=== PATIENT | male | born 1930 | race Caucasian/White ===

== ENCOUNTER 2017-06-18 14:23 | Inpatient (IN) | payer MEDICARE, BC ==
[~2017-06-18] VITALS: Ht 170.2 cm; Wt 69.4 kg
[2017-06-18] VITALS (7 sets, daily range): BP systolic 95–115; BP diastolic 58–81
[2017-06-18] MEDS ORDERED: ATORVASTATIN CA20 MG ORAL (15:07)
[2017-06-18] MEDS ORDERED: ARICEPT10 MG ORAL (15:07)
[2017-06-18] MEDS ORDERED: ATROVENT HFA12.9 GM IH ×2 (15:07)
[2017-06-18] MEDS ORDERED: BRILINTA90 MG PO (15:07)
[2017-06-18] MEDS ORDERED: AMIODARONE HCL100 MG ORAL (15:07)
[2017-06-18] MEDS ORDERED: AZELASTINE137 MCG/0. NS (15:07)
[2017-06-18] MEDS ORDERED: DOCUSATE SODIU100 MG ORAL (15:07)
[2017-06-18] MEDS ORDERED: GABAPENTIN100 MG ORAL (15:53)
[2017-06-18] MEDS ORDERED: TOPROL XL25 MG ORAL (15:53)
[2017-06-18] MEDS ORDERED: SUCRALFATE1 GM/10 ML PO (15:53)
[2017-06-18] MEDS ORDERED: MELATONIN1 M2 PO (15:53)
[2017-06-18] MEDS ORDERED: MIRALAX17 G2 ORAL (15:53)
[2017-06-18] MEDS ORDERED: PNEUMOVAX25 MCG/0.5 IJ (15:53)
[2017-06-18] MEDS ORDERED: NAHCO3650 MG GT (15:53)
[2017-06-18] MEDS ORDERED: DULCOLAX5 MG PO (15:53)
[2017-06-18] MEDS ORDERED: [UNRECOGNIZED DRUG - OTHER] PO (15:53)
[2017-06-18] MEDS ORDERED: LOSARTAN POTAS100 MG ORAL (15:53)
[2017-06-18] MEDS ORDERED: PROTONIX20 MG ORAL (15:53)
[2017-06-18] MEDS ORDERED: NAMENDA10 MG ORAL (15:53)
[2017-06-18 15:58] LABS: APPEARANCE,URINE SLIGHTLY CLOUDY; BILIRUBIN, URINE 1+ (NEGATIVE); COLOR,URINE BROWN; GLUCOSE, URINE (UA) NEGATIVE (NEGATIVE); KETONES,URINE 1+ (NEGATIVE); LEUKOCYTE ESTERASE ,URINE 2+ (NEGATIVE); NITRITE,URINE POSITIVE (NEGATIVE); PH,URINE 5 (4.5-8.0); PROTEIN,URINE 2+ (NEGATIVE); UROBILINOGEN,URINE 1 MG/DL (0.0-1.0)
--- NOTE | 2017-06-18 16:04 | Diagnostic Imaging Report ---
Indication: Altered mental status Technique: spiral acquisitions obtained through the brain. Angled axial and coronal 5 x 5 mm slices were reconstructed. No IV contrast utilized. Radiation dose was minimized using automated exposure control Total dose length product 1369.05 mGycm. CTDIvol(s) 70.38 mGy Comparison: none FINDINGS: No acute hemorrhage or edema. No mass effect or midline shift. There is age-related enlargement of the ventricles and extra axial CSF spaces. There is periventricular deep white matter ischemic change. Normal cr-white differentiation. There is evidence of prior bilateral ocular surgery. Visualized sinuses are unremarkable. Intact calvarium. IMPRESSION: Chronic and age-related changes. Negative for acute intracranial bleed or mass effect The CT scanner at [facility] is accredited by the [employer] and the scans are performed using protocols designed to limit radiation exposure to as low as reasonably achievable to attain images of sufficient resolution adequate for diagnostic evaluation
[2017-06-18 16:07] LABS: INR 1.3 (0.9-1.1)
--- NOTE | 2017-06-18 16:08 | Diagnostic Imaging Report ---
Indication: Shortness of breath Technique: One view of the chest Comparison: none Findings: There is bilateral interstitial and airspace edema versus infiltrates. There are bilateral pleural effusions. The heart is mildly enlarged. Severe degenerative changes of both shoulders are noted Impression: Bilateral interstitial and airspace edema, versus infiltrates, and bilateral pleural effusions
[2017-06-18 16:09] LABS: HEMATOCRIT 31.7 % (42.0-52.0); HEMOGLOBIN 10.6 G/DL (14.2-18.0); MEAN CORPUSCULAR VOLUME 92 FL (80-99); PLATELET COUNT 463 K/UL (150-450); RED BLOOD COUNT 3.45 M/UL (4.70-6.10); RED CELL DISTRIBUTION WIDTH 15.1 % (11.6-14.8); WHITE BLOOD COUNT 17.7 K/UL (4.8-10.8)
[2017-06-18 16:21] LABS: ANION GAP 20 mmol/L (5-15); BLOOD UREA NITROGEN 84 mg/dL (7-18); CALCIUM 8.7 MG/DL (8.5-10.1); CARBON DIOXIDE 17 MMOL/L (21-32); CHLORIDE 96 MMOL/L (98-107); CREATININE 3.6 MG/DL (0.55-1.30); POTASSIUM 4.9 MMOL/L (3.5-5.1); SODIUM 133 MMOL/L (136-145)
[2017-06-18 16:35] LABS: ALANINE AMINOTRANSFERASE 365 U/L (12-78); ALBUMIN/GLOBULIN RATIO 0.9 (1.0-2.7); ALKALINE PHOSPHATASE 200 U/L (46-116); ASPARTATE AMINO TRANSFERASE 670 U/L (15-37); BILIRUBIN,TOTAL 0.8 MG/DL (0.2-1.0); CKMB 16.2 NG/ML (0.0-3.6); CREATINE KINASE 327 U/L (26-308)
[2017-06-18] MEDS ORDERED: Cefepime HCl 1 GM in D5W 55 ML IVPB ONE (16:45)
--- NOTE | 2017-06-18 17:48 | Emergency Room Report ---
History of Present Illness General Chief Complaint: Dyspnea/Respdistress Source: Medical Record, EMS Present Illness HPI This patient presents from a detention facility. He had been admitted to [facility] after having an acute CO 2 weeks ago. He had a very complicated hospital course status post his myocardial infarction. She did undergo coronary artery stenting. He was supposed to undergo a second stent but because his hospital course was so complicated, the stent was delayed and was not performed.Patient has a history of mild dementia. He was otherwise a well an active 87-year-old. He suffered an acute CO 2 weeks ago and was treated at [facility]. His hospital course was complicated by congestive heart failure, atrial fibrillation, and upper GI bleed with profound anemia, and acute renal failure. He presents today from a detention facility for concern of shortness of breath. The patient is altered and unable or unwilling to give a history. There is no other history available. Allergies: Coded Allergies: PENICILLINS (Verified Allergy, Unknown, 06/18/17) Patient History Past Medical History: see triage record, HTN, CO, CAD, CHF, AFib, arrhyth, ulcer, GERD, GI bleed, dementia, renal disease Social History: Denies: smoking, alcohol use, drug use Reviewed Nursing Documentation: PMH: Agreed; PSxH: Agreed Nursing Documentation-PMH Past Medical History: No History, Except For Review of Systems All Other Systems: negative except mentioned in HPI Physical Exam Vital Signs Date Time Temp Pulse Resp B/P (MAP) Pulse Ox O2 Delivery O2 Flow Rate FiO2 06/18/17 14:23 98.1 71 20 93/60 100 Nasal Cannula 4.0 98.1 Sp02 EP Interpretation: reviewed, normal General Appearance: no apparent distress, GCS 15, non-toxic, other - Altered/ confused, frail elderly male Head: normocephalic, atraumatic, other - ecchymosis near lateral canthus of R. eye Eyes: bilateral eye normal inspection, bilateral eye PERRL ENT: hearing grossly normal, normal pharynx, no angioedema, normal voice Neck: full range of motion, supple, supple/symm/no masses Respiratory: chest non-tender, lungs clear, normal breath sounds, no respiratory distress, no retraction, no accessory muscle use, speaking full sentences Cardiovascular #1: regular rate, rhythm, no edema Gastrointestinal: normal bowel sounds, non tender, soft, non-distended, no guarding, no rebound Rectal: deferred Musculoskeletal: normal range of motion, swelling - Anasarca Neurologic: other - Non focal, grossly normal Psychiatric: mood/affect normal Skin: warm/dry, well hydrated, other - anasarca, scattered ecchymosis Medical Decision Making Diagnostic Impression: Primary Impression: Sepsis Additional Impressions: Multisystem organ failure Pneumonia Elevated troponin Renal failure Congestive heart failure (CHF) Transaminitis ER Course This patient presented altered and confused. On my evaluation, he was not short of breath or in any kind of respiratory distress. He has a complicated medical history and a recent complicated hospital course status post an acute CO. He is found to have multisystem organ failure, congestive heart failure and pneumonia on chest x-ray. He was given IV fluids and broad-spectrum antibiotics. He was placed on BiPAP as a precaution to prevent respiratory failure given the CHF and the need for fluids and antibiotics. He also is in acute renal failure with a transaminitis. His blood pressure remained stable with systolic blood pressures in the 90s. Further review the patient's chart and this is baseline for him. This patient has a poor prognosis and is critically ill. He is admitted to the ICU. This patient is critically ill. This patient required complex medical decision- making, aggressive intervention, extensive laboratory workup and monitoring. Critical care time: 40 minutes. Laboratory Tests Test 06/18/17 15:36 06/18/17 17:30 White Blood Count 17.7 K/UL (4.8-10.8) H Red Blood Count 3.45 M/UL (4.70-6.10) L Hemoglobin 10.6 G/DL (14.2-18.0) L Hematocrit 31.7 % (42.0-52.0) L Mean Corpuscular Volume 92 FL (80-99) Mean Corpuscular Hemoglobin 30.8 PG (27.0-31.0) Mean Corpuscular Hemoglobin Concent 33.5 G/DL (32.0-36.0) Red Cell Distribution Width 15.1 % (11.6-14.8) H Platelet Count 463 K/UL (150-450) H Mean Platelet Volume 7.0 FL (6.5-10.1) Neutrophils (%) (Auto) % (45.0-75.0) Lymphocytes (%) (Auto) % (20.0-45.0) Monocytes (%) (Auto) % (1.0-10.0) Eosinophils (%) (Auto) % (0.0-3.0) Basophils (%) (Auto) % (0.0-2.0) Differential Total Cells Counted 100 Neutrophils % (Manual) 89 % (45-75) H Lymphocytes % (Manual) 6 % (20-45) L Monocytes % (Manual) 5 % (1-10) Eosinophils % (Manual) 0 % (0-3) Basophils % (Manual) 0 % (0-2) Band Neutrophils 0 % (0-8) Platelet Estimate Increased H Platelet Morphology Normal Red Blood Cell Morphology Normal Prothrombin Time 14.0 SEC (9.30-11.50) H Prothrombin Time INR 1.3 (0.9-1.1) H PTT 29 SEC (23-33) Urine Color Brown Urine Appearance Slightly cloudy Urine pH 5 (4.5-8.0) Urine Specific Napoleon 1.025 (1.005-1.035) Urine Protein 2+ (NEGATIVE) H Urine Glucose (UA) Negative (NEGATIVE) Urine Ketones 1+ (NEGATIVE) H Urine Occult Blood 5+ (NEGATIVE) H Urine Nitrite Positive (NEGATIVE) H Urine Bilirubin 1+ (NEGATIVE) H Urine Ictotest Negative Urine Urobilinogen 1 MG/DL (0.0-1.0) H Urine Leukocyte Esterase 2+ (NEGATIVE) H Urine RBC 10-15 /HPF (0 - 0) H Urine WBC 5-10 /HPF (0 - 0) H Urine Squamous Epithelial Cells None /LPF (NONE/OCC) Urine Bacteria Moderate /HPF (NONE) H Urine Fine Granular Casts 2-4 /LPF (NONE) H Sodium Level 133 MMOL/L (136-145) L Potassium Level 4.9 MMOL/L (3.5-5.1) Chloride Level 96 MMOL/L (98-107) L Carbon Dioxide Level 17 MMOL/L (21-32) L Anion Gap 20 mmol/L (5-15) H Blood Urea Nitrogen 84 mg/dL (7-18) H Creatinine 3.6 MG/DL (0.55-1.30) H Estimate Glomerular Filtration Rate mL/min (>60) Glucose Level 120 MG/DL (74-106) H Lactic Acid Level 6.30 mmol/L (0.66-2.22) H 5.60 mmol/L (0.66-2.22) H Calcium Level 8.7 MG/DL (8.5-10.1) Total Bilirubin 0.8 MG/DL (0.2-1.0) Aspartate Amino Transferase (AST) 670 U/L (15-37) H Alanine Aminotransferase (ALT) 365 U/L (12-78) H Alkaline Phosphatase 200 U/L (46-116) H Total Creatine Kinase 327 U/L (26-308) H Creatine Kinase MB 16.2 NG/ML (0.0-3.6) H Creatine Kinase MB Relative Index 4.9 Troponin I 0.488 ng/mL (0.000-0.056) Pro-B-Type Natriuretic Peptide > 66778 pg/mL (0-125) H Total Protein 6.4 G/DL (6.4-8.2) Albumin 3.0 G/DL (3.4-5.0) L Globulin 3.4 g/dL Albumin/Globulin Ratio 0.9 (1.0-2.7) L EKG Diagnostic Results Rate: normal Rhythm: NSR ST Segments: no acute changes Other Impression Qwaves, RBBB. No comparison available. Rhythm Strip Diag. Results EP Interpretation: yes Rate: 80's Rhythm: NSR, no PVC's, no ectopy Chest X-Ray Diagnostic Results Chest X-Ray Diagnostic Results : Chest X-Ray Ordered: Yes # of Views/Limited/Complete: 1 View Indication: Shortness of Breath EP Interpretation: No Interpretation: other Impression: Other - Diffuse bilateral patchy opacities, RLL and RUQ opacity. Electronically Signed by: Rafael CT/MRI/US Diagnostic Results CT/MRI/US Diagnostic Results : Imaging Test Ordered: CT head Impression No acute findings. See official report. Last Vital Signs Date Time Temp Pulse Resp B/P (MAP) Pulse Ox O2 Delivery O2 Flow Rate FiO2 06/18/17 15:37 80 20 Nasal Cannula 4.0 06/18/17 15:20 98.1 99/58 89 98.1 Disposition: ADMITTED INPATIENT Condition: Critical Referrals: SKY BURCIAGA (PCP) JACE SANCHEZ D.O. Jun 18, 2017 17:48
[2017-06-18] MEDS ORDERED: Heparin 25,000u/D5W 500ml 500 ML IV SCH (20:00)
[2017-06-18] MEDS ORDERED: Vancomycin 1 GM in D5W 275 ML IVPB SCH (20:15)
[2017-06-18] MEDS: NovoLOG Insulin Flexpen SUBQ SCH (21:00)
[2017-06-18] MEDS ORDERED: Aspirin Baby 81mg ORAL SCH (21:00)
[2017-06-18] MEDS: Heparin 5000 units/ml inj SUBQ SCH (21:16)
[2017-06-18] MEDS: Albuterol/Ipratropium 3ml neb HHN SCH (22:42)
[2017-06-18] MEDS ORDERED: Vancomycin 1.5 GM/D5W 250ML IVPB SCH (23:00)
[2017-06-19] VITALS (18 sets, daily range): BP systolic 90–139; BP diastolic 55–100
[2017-06-19] MEDS: Albuterol/Ipratropium 3ml neb HHN SCH ×5 (02:55→20:20)
[2017-06-19] MEDS: NovoLOG Insulin Flexpen SUBQ SCH ×4 (05:52→21:00)
--- NOTE | 2017-06-19 08:15 | Consultation ---
DATE OF CONSULTATION: 06/18/2017 CARDIOLOGY CONSULTATION CONSULTING PHYSICIAN: Moisés Franklin M.D. REQUESTING PHYSICIAN: Ceferino Ragland M.D. REASON FOR CONSULTATION: Acute on chronic congestive heart failure. HISTORY OF PRESENT ILLNESS: This 87-year-old male, who was independent and active up until several weeks ago, was brought into the emergency room from a care home facility with acute shortness of breath. His current medical history dates back several weeks ago when he was seen at an urgent care center, sent home following laboratory draw with antibiotics and subsequently called for acute admission due to renal failure and an acute myocardial infarction. His troponin level was above 100 and he ultimately underwent a complicated coronary artery stent procedure. A second stent procedure was deferred due to the deterioration of his condition, namely, the patient had a renal failure with the creatinine of 7 that improved to around 2.6 upon his discharge to the care home facility. The patient had atrial fibrillation and congestive heart failure as well and a GI bleed due to a gastric ulcer. The patient was at the care home facility for just one day and was transferred because of acute decompensation with shortness of breath. PAST MEDICAL HISTORY: Coronary artery disease, recent myocardial infarction, congestive heart failure, atrial fibrillation, hypertension, gastric ulcer, gastroesophageal reflux, acute on chronic kidney disease, and cerebrovascular disease with dementia. ALLERGIES: Include penicillin. MEDICATIONS: Prior to admission, reviewed and reconciled. SOCIAL HISTORY: Negative for smoking, alcohol, or substance abuse. FAMILY HISTORY: Not contributory. REVIEW OF SYSTEMS: The patient's nephew is interviewed as well as the patient himself. All systems negative other than detailed data noted above. PHYSICAL EXAMINATION: VITAL SIGNS: Afebrile. Blood pressure 93/60, pulse 71, and respirations 20. HEENT: Normocephalic and atraumatic. Conjunctivae pink. Sclerae are anicteric. Oropharynx clear. Mucous membranes moist. NECK: Supple. Jugular venous pressure grossly elevated. No accessory muscle use is noted. LUNGS: With bilateral rales and subcostal retractions. CARDIAC: Irregularly irregular rhythm. Normal S1, S2. A 1/6 systolic murmur at apex. ABDOMEN: Soft and nontender. EXTREMITIES: With trace edema. NEUROLOGIC: Nonfocal. SKIN: Warm and dry. LABORATORY AND DIAGNOSTIC DATA: Chest x-ray with pulmonary edema, interstitial disease. EKG, sinus rhythm, right bundle-branch block, anterolateral infarction, nonspecific ST-T change. Urinalysis with 2+ leukocyte esterase, 5 to 10 white cells. white count is 17.7, hemoglobin is 10.6. Lactic acid 6.3. Sodium 133, potassium 4.9, bicarb 17, BUN 84, and creatinine 3.6. IMPRESSION: 1. Critical condition and guarded prognosis. 2. Cardiogenic shock. 3. Acute myocardial ischemia and possible infarction. 4. Acute on chronic systolic and diastolic congestive heart failure. 5. Possible healthcare-acquired pneumonia. 6. Lactic acidosis. 7. Ischemic cardiomyopathy. 8. Recent coronary stenting. 9. Acute on chronic renal failure. 10. History of recent gastrointestinal bleed. PLAN: 1. BiPAP support. 2. ICU care with cardiac monitoring. 3. Broad-spectrum antibiotics. 4. Diuresis efforts. 5. Continue dual anti-platelet therapy. 6. Titrate antianginal regimen as tolerated by blood pressure. 7. DVT prophylaxis. 8. Stress ulcer prophylaxis. Moisés Franklin M.D. DR: CONI JOB#: [id number] CC:
[2017-06-19] MEDS: Heparin 5000 units/ml inj SUBQ SCH ×2 (08:42→21:06)
[2017-06-19 08:59] LABS: HEMATOCRIT 30.4 % (42.0-52.0); HEMOGLOBIN 10.6 G/DL (14.2-18.0); MEAN CORPUSCULAR VOLUME 91 FL (80-99); PLATELET COUNT 363 K/UL (150-450); RED BLOOD COUNT 3.35 M/UL (4.70-6.10); RED CELL DISTRIBUTION WIDTH 15.2 % (11.6-14.8)
[2017-06-19] MEDS ORDERED: Amiodarone 200mg tab ORAL SCH (09:00)
[2017-06-19] MEDS ORDERED: Aspirin Baby 81mg ORAL SCH (09:00)
[2017-06-19] MEDS ORDERED: Metoprolol Succinate XL 25mg tab ORAL SCH (09:00)
[2017-06-19 09:31] LABS: ALANINE AMINOTRANSFERASE 348 U/L (12-78); ALBUMIN 2.7 G/DL (3.4-5.0); ALBUMIN/GLOBULIN RATIO 0.8 (1.0-2.7); ALKALINE PHOSPHATASE 191 U/L (46-116); ANION GAP 17 mmol/L (5-15); ASPARTATE AMINO TRANSFERASE 491 U/L (15-37); BILIRUBIN,TOTAL 0.8 MG/DL (0.2-1.0); BLOOD UREA NITROGEN 97 mg/dL (7-18); CALCIUM 8.4 MG/DL (8.5-10.1); CARBON DIOXIDE 18 MMOL/L (21-32); CHLORIDE 98 MMOL/L (98-107); SODIUM 133 MMOL/L (136-145)
--- NOTE | 2017-06-19 14:13 | History & Physical ---
History and Physical History & Physicial dict resp failure pul edema pos pneumonia CKD/JOSEFINA called renal and coardiology disc w nephew he will disc code status w other family prognosis guarded Ceferino Ragland MD Jun 19, 2017 14:13
--- NOTE | 2017-06-19 17:27 | Diagnostic Imaging Report ---
Indication: Acute renal failure Technique: Grayscale and duplex images of the kidneys, retroperitoneum, and bladder were obtained. Comparison: none Findings: Right kidney measures 8.5 cm in length. Left kidney measures 9.6 cm in length. Both kidneys demonstrate normal echogenicity. No hydronephrosis. There is a left upper pole renal cyst.. Normal inferior vena cava. The bladder contains a Ovalle catheter. Some debris is seen within the bladder lumen. Impression: Negative for hydronephrosis Ovalle catheter within the bladder, which is empty. Debris within the bladder lumen, nonspecific Incidental finding left renal cyst.
[2017-06-19] MEDS ORDERED: Cefepime HCl 0.5 GM in D5W 55 ML IVPB SCH ×4 (18:00)
[2017-06-19] MEDS ORDERED: Albuterol/Ipratropium 3ml neb HHN SCH (19:00)
--- NOTE | 2017-06-19 19:30 | History and Physical Report ---
DATE OF ADMISSION: 06/18/2017 HISTORY OF PRESENT ILLNESS: The patient is an elderly man admitted from the nursing facility where he was cared for by another physician, who is not on staff. He had a prolonged hospital course recently and was recently discharged from [facility] after an acute myocardial infarction with troponin over 100 and acute renal failure. He had a coronary stent placed. He had gastrointestinal bleeding, atrial fibrillation, and acute renal failure. He recovered sufficiently for discharge to detention where he spent only short time and was transferred here because of respiratory distress. When he arrived, he was in distress due to congestive heart failure, acute respiratory failure, and possible pneumonia and admission was arranged. He did not have any high fever. He can provide no additional history. I have spoken to the family and reviewed the records from [facility]. Code status, discussed with family currently Full Code. PAST MEDICAL HISTORY: Coronary heart disease, acute on chronic kidney disease, gastrointestinal bleeding, atrial fibrillation, congestive heart failure, hypertension, recent DE, gastric ulcer, dementia. ALLERGIES: Penicillin. SOCIAL HISTORY: He does not drink or smoke. He is currently living in a nursing facility. REVIEW OF SYSTEMS: Cannot be obtained. PHYSICAL EXAMINATION: GENERAL: The patient is awake and nods his head. He is on BiPAP mask and cannot communicate very well. VITAL SIGNS: Showed the blood pressure is somewhat low at 90 to 115 systolic. There is no fever. He appears cachectic and chronically ill. The heart rate is about 80 and rhythm appears to be atrial fibrillation. Respirations are elevated. SKIN: Warm and dry. HEENT: The head is normocephalic. NECK: No jugular vein distention. CHEST: Has a few rhonchi. CARDIAC: Rhythm is irregular. ABDOMEN: Soft and nontender. EXTREMITIES: No clubbing, cyanosis, or edema. LABORATORY AND DIAGNOSTIC DATA: Chest x-ray shows pulmonary edema and possible pneumonia. The white count is elevated at 17,000. Urinalysis has a few white cells. Creatinine is elevated at 4.0, bicarbonate is low at 18. Blood gas showed pH of 7.5, pCO2 of 16 with bicarbonate of 12, pO2 is 536. Natriuretic peptide is elevated over 35,000 and troponin is elevated at 0.4. PSA is mildly elevated at 5.7. IMPRESSION: 1. Acute respiratory failure. 2. Pulmonary with possible extension. 3. Chronic kidney disease with possible acute component. 4. Shock liver with elevated liver enzymes. 5. Coronary heart disease. 6. Dementia. 7. History of recent gastrointestinal bleed. PLAN: The patient will be treated with BiPAP as needed as well as diuresis and antibiotics. His prognosis is guarded. I discussed his care with the nephew today. Ceferino Ragland M.D. DR: Marylu JOB#: [id number] CC: Kristopher Bowers M.D. ; FAX#: [phone] CRISS SMITH M.D.; FAX#: [phone]
--- NOTE | 2017-06-19 20:00 | Consultation ---
DATE OF CONSULTATION: 06/19/2017 NEPHROLOGY CONSULTATION CONSULTING PHYSICIAN: Henry Arciniega M.D. REFERRING PHYSICIAN: Ceferino Ragland M.D. REASON FOR CONSULTATION: Acute on chronic kidney injury. HISTORY OF PRESENT ILLNESS: The patient is an 87-year-old man who was recently in [facility] with ST-elevation myocardial infarction and cardiac cath and stenting, congestive heart failure. He had low ejection fraction of 30% to 35% with hypokinesis of the basal and mid anterior septal wall. The patient also had paroxysmal AFib with RVR and upper GI bleed, hemoptysis, leukocytosis, and JOSEFINA on CKD at [facility]. His creatinine was in the low to mid 2s and today, it is 4. He came in to [facility] last night with acute shortness of breath and respiratory failure. He was on BiPAP, now weaned off the BiPAP. He is in the ICU. There is history of hypertension and Alzheimer disease. The patient cannot contribute anything to his history. PAST HISTORY: The patient is unable to provide. MEDICATIONS: On discharge from [facility] include losartan 50 mg daily, Namenda 10 mg b.i.d., Metoprolol-XL 25 mg half a tablet daily, Protonix 40 mg b.i.d., sodium bicarbonate 650 mg two tablets b.i.d., sucralfate 1 g q.i.d., ticagrelor 90 mg daily, Anucort-HC suppository p.r.n., melatonin 1 mg daily p.r.n., trazodone 25 mg at bedtime p.r.n. ALLERGIES: Apparently to penicillin. REVIEW OF SYSTEMS: The patient is unable to provide. PHYSICAL EXAMINATION: GENERAL: The patient is seen in the ICU. He is alert, chronically ill-appearing, thin, elderly man. VITAL SIGNS: Blood pressure 102/61, pulse 80, respirations 18, O2 saturation 96% on 2 liters, and temperature 98 degrees axillary. HEAD, EARS, EYES, NOSE, THROAT: Sclerae are nonicteric. Ocular motions intact in all directions. There is facial ecchymosis. Oral mucosa moist. NECK: No adenopathy or thyroid enlargement. LUNGS: Fine crackles at the bases bilateral. HEART: Rhythm is regular. S1 and S2. Apical S4. I hear no murmurs. ABDOMEN: Soft. I am unable to feel liver or spleen. EXTREMITIES: No edema. NEUROLOGIC: The patient is alert and responsive. Ocular motions intact in all directions. Smile symmetric. Tongue is midline. He moves all extremities. He is disoriented. PERTINENT LABORATORY AND DIAGNOSTIC DATA: On 06/18/2017, BUN 84 and creatinine 3.6. Troponin 0.488. Today, BUN 97, creatinine 4, sodium 133, potassium 4, chloride 98, and CO2 18. His lactic acid 2.7 and 4.4. BNP greater than 35,000. Albumin is 2.7. TSH 1.628. He had elevated AST, ALT, and alkaline phosphatase. His total CK is 327. Chest x-ray is consistent with CHF. IMPRESSION: 1. Chronic kidney disease, likely stage 4 or 5, due to nephrosclerosis. 2. Acute kidney injury likely secondary to contrast nephropathy from recent cardiac catheterization, possible contribution of cardiorenal syndrome with worsening CHF and cardiomyopathy, possible atheroembolic syndrome as well. 3. CHF, acute on chronic with systolic dysfunction. 4. Alzheimer's. 5. Moderate protein-calorie malnutrition. 6. Elevated liver enzymes likely secondary to CHF. PLAN: I would continue gradual diuresis at this time in view of his respiratory failure and CHF. We will watch closely and I expect his BUN and creatinine may rise a bit and then peak. Hopefully, his acute kidney injury will resolve with observation. He may or may not be a candidate for dialysis, but this will have to be considered closely in view of his multiple comorbidities and Alzheimer disease. Thank you so much for allowing me to participate in the care of this patient. Henry Arciniega M.D. DR: ELANA JOB#: [id number] CC:
[2017-06-19] MEDS ORDERED: NovoLOG Insulin Flexpen SUBQ SCH (21:00)
[2017-06-19] MEDS ORDERED: Heparin 5000 units/ml inj SUBQ SCH (21:00)
[2017-06-19] MEDS: Cefepime HCl 0.5 GM in D5W 55 ML IVPB SCH (21:05)
[2017-06-19] MEDS ORDERED: dilTIAZem HCl 25mg/5ml Inj IVP ONE (22:15)
[2017-06-20] VITALS (8 sets, daily range): BP systolic 94–136; BP diastolic 59–89
[2017-06-20] MEDS ORDERED: Vancomycin 1gm in D5W 275ml IVPB ONE ×2
[2017-06-20] MEDS: Albuterol/Ipratropium 3ml neb HHN SCH ×6 (00:28→19:00)
[2017-06-20 01:08] LABS: CREATININE 4.1 MG/DL (0.55-1.30)
--- NOTE | 2017-06-20 02:45 | Progress Note ---
DATE: 06/19/2017 CARDIOLOGY PROGRESS NOTE CRITICAL CARE SUBJECTIVE: The patient feels slightly better today with less shortness of breath. He is more alert and interactive. He is off BiPAP. Saturating on a nasal cannula adequately. Monitored rhythm is atrial fibrillation with episodes of rapid ventricular response. OBJECTIVE: VITAL SIGNS: Blood pressure 110/70, heart rate 59 to 119, and respiratory rate 18 to 20. He is afebrile. Oxygen saturation is 91% to 99% on 2 liters nasal cannula. LUNGS: Few rales. HEART: Irregularly irregular rhythm. Normal S1, S2. ABDOMEN: Soft. EXTREMITIES: No edema. LABORATORY DATA: White count 13 and hemoglobin 10.6. BUN 97 and creatinine 4. Lactic acid 4.4. Troponin 0.421. Urinalysis with 5 to 10 white cells. IMPRESSION: 1. Remains critical and guarded. 2. Cardiogenic shock. 3. Acute myocardial ischemia and possible infarction. 4. Acute on chronic systolic and diastolic congestive heart failure. 5. Healthcare-acquired pneumonia. 6. Lactic acidosis. 7. Ischemic cardiomyopathy with recent coronary stenting. 8. Acute on chronic renal failure. 9. Recent history of gastrointestinal bleeding. 10. Paroxysmal atrial fibrillation with episodes of rapid ventricular response. PLAN: 1. Amiodarone reloading. 2. Titrate beta-laila. 3. IV Cardizem for episodes of rapid ventricular response. 4. Titrate diuretic dosing. 5. Optimize cardiorenal parameters. 6. No plans for anticoagulation at this time due to increased bleeding risk in view of recent gastrointestinal bleed. Moisés Franklin M.D. DR: KEYLA JOB#: [id number] CC:
[2017-06-20] MEDS: NovoLOG Insulin Flexpen SUBQ SCH ×3 (06:30→16:27)
[2017-06-20 07:32] LABS: ALANINE AMINOTRANSFERASE 554 U/L (12-78); ALBUMIN 2.7 G/DL (3.4-5.0); ALBUMIN/GLOBULIN RATIO 0.8 (1.0-2.7); ALKALINE PHOSPHATASE 213 U/L (46-116); ANION GAP 20 mmol/L (5-15); ASPARTATE AMINO TRANSFERASE 677 U/L (15-37); BLOOD UREA NITROGEN 106 mg/dL (7-18); CALCIUM 8.3 MG/DL (8.5-10.1); CARBON DIOXIDE 15 MMOL/L (21-32); CHLORIDE 96 MMOL/L (98-107); CREATININE 4.4 MG/DL (0.55-1.30); PHOSPHORUS 7.6 MG/DL (2.5-4.9); SODIUM 131 MMOL/L (136-145)
[2017-06-20 07:43] LABS: HEMATOCRIT 29.1 % (42.0-52.0); HEMOGLOBIN 10.1 G/DL (14.2-18.0); MEAN CORPUSCULAR VOLUME 91 FL (80-99); PLATELET COUNT 364 K/UL (150-450); RED BLOOD COUNT 3.18 M/UL (4.70-6.10); RED CELL DISTRIBUTION WIDTH 14.6 % (11.6-14.8); WHITE BLOOD COUNT 15.3 K/UL (4.8-10.8)
[2017-06-20] MEDS ORDERED: Metoprolol Succinate XL 25mg tab ORAL SCH ×2 (09:00)
[2017-06-20] MEDS ORDERED: Amiodarone 200mg tab ORAL SCH ×2 (09:00)
[2017-06-20] MEDS ORDERED: Aspirin Baby 81mg ORAL SCH ×2 (09:00)
[2017-06-20] MEDS: Heparin 5000 units/ml inj SUBQ SCH (09:19)
[2017-06-20] MEDS ORDERED: Allopurinol 100mg Tab ORAL SCH (15:00)
--- NOTE | 2017-06-20 15:09 | Nephrology Progress Note ---
Assessment/Plan Problem List: (1) Hyperuricemia (2) JOSEFINA (acute kidney injury) (3) CKD (chronic kidney disease) stage 5, GFR less than 15 ml/min (4) Congestive heart failure (CHF) (5) Transaminitis (6) Multisystem organ failure (7) Pneumonia Plan continue lasix, add allopurinol, repeat cxr d/w family Subjective ROS Limited/Unobtainable: Yes Objective Objective Last 24 Hour Vital Signs Date Time Temp Pulse Resp B/P (MAP) Pulse Ox O2 Delivery O2 Flow Rate FiO2 06/20/17 12:00 96.8 93 22 101/65 91 Nasal Cannula 4.0 96.8 06/20/17 12:00 4.0 06/20/17 11:50 96 06/20/17 10:58 72 18 92 Nasal Cannula 3.0 32 06/20/17 10:48 80 18 91 Nasal Cannula 3.0 32 06/20/17 09:22 90 98/62 06/20/17 09:00 90 98/62 06/20/17 08:00 97.7 113 22 94/59 90 Nasal Cannula 2.0 97.7 06/20/17 08:00 2.0 06/20/17 08:00 123 06/20/17 06:56 64 18 94 Nasal Cannula 3.0 32 06/20/17 06:56 Nasal Cannula 3.0 32 06/20/17 06:56 91 Nasal Cannula 3.0 32 06/20/17 06:45 79 18 90 Nasal Cannula 2.0 28 06/20/17 04:00 96 06/20/17 04:00 97.2 94 25 100/69 96 Nasal Cannula 2.0 97.2 06/20/17 03:15 64 18 93 Nasal Cannula 3.0 32 06/20/17 03:02 68 18 88 Nasal Cannula 3.0 32 06/20/17 01:11 68 22 98 Facial 30 06/20/17 00:30 100 06/20/17 00:00 105 06/20/17 00:00 97.8 103 20 136/89 100 Bi-pap 100.0 97.8 06/19/17 23:45 66 18 96 Nasal Cannula 2.0 28 06/19/17 23:35 65 18 91 Nasal Cannula 2.0 28 06/19/17 22:30 119 110/70 06/19/17 20:36 85 18 99 Nasal Cannula 2.0 28 06/19/17 20:20 59 18 95 Nasal Cannula 2.0 28 06/19/17 20:20 Nasal Cannula 2.0 06/19/17 20:00 94 06/19/17 20:00 97.1 90 20 139/100 100 Nasal Cannula 2.0 97.1 06/19/17 16:00 98.0 76 18 103/62 98 Nasal Cannula 2.0 98.0 06/19/17 16:00 76 06/19/17 15:23 75 18 98 Nasal Cannula 2.0 28 06/19/17 15:12 74 18 95 Nasal Cannula 2.0 28 Intake and Output 06/19/17 06/20/17 19:00 07:00 Intake Total 400 ml 360 ml Output Total 340 ml 350 ml Balance 60 ml 10 ml Intake Oral 300 ml 150 ml IV Total 100 ml 210 ml Output Urine Total 340 ml 350 ml Laboratory Tests 06/19/17 21:00: Urine Collection Time 24, Urine Total Volume 750, Urine Creatinine 104, Urine Creatinine 24 Hour 780L, Patient Height Inches (Creat Clear) 67, Patient Weight Pounds (Creat Clear) 165.99, Creatinine Clearance 12L, Creatinine 4.1H, Estimat Glomerular Filtration Rate , Random Vancomycin Level 14.1 06/20/17 06:30: Creatinine 4.4H, Estimat Glomerular Filtration Rate , White Blood Count 15.3H, Red Blood Count 3.18L, Hemoglobin 10.1L, Hematocrit 29.1L, Mean Corpuscular Volume 91, Mean Corpuscular Hemoglobin 31.7H, Mean Corpuscular Hemoglobin Concent 34.7, Red Cell Distribution Width 14.6, Platelet Count 364, Mean Platelet Volume 7.4, Neutrophils (%) (Auto) , Lymphocytes (%) (Auto) , Monocytes (%) (Auto) , Eosinophils (%) (Auto) , Basophils (%) (Auto) , Differential Total Cells Counted 100, Neutrophils % (Manual) 91H, Lymphocytes % (Manual) 4L, Monocytes % (Manual) 5, Eosinophils % (Manual) 0, Basophils % ( Manual) 0, Band Neutrophils 0, Platelet Estimate Adequate, Platelet Morphology Normal, Hypochromasia 1+, Sodium Level 131L, Potassium Level 4.0, Chloride Level 96L, Carbon Dioxide Level 15L, Anion Gap 20H, Blood Urea Nitrogen 106H, Glucose Level 126H, Uric Acid 15.6H, Calcium Level 8.3L, Phosphorus Level 7.6H, Magnesium Level 2.5H, Total Bilirubin 1.0, Aspartate Amino Transf (AST/SGOT) 677H, Alanine Aminotransferase (ALT/SGPT) 554H, Alkaline Phosphatase 213H, Troponin I 0.400H, Total Protein 6.0L, Albumin 2.7L, Globulin 3.3, Albumin/ Globulin Ratio 0.8L Height (Feet): 5 Height (Inches): 7.00 Weight (Pounds): 153 General Appearance: moderate distress EENT: other - facial eccymoses Neck: normal alignment Cardiovascular: regular rhythm, tachycardia Respiratory/Chest: accessory muscle use, rhonchi - bilaterally Abdomen: non tender, soft, no organomegaly Extremities: moderate edema Neurologic: water leak repairer II-XII grossly normal CRISS SMITH Jun 20, 2017 15:09
--- NOTE | 2017-06-20 16:49 | Pulmonology Progress Note ---
Assessment/Plan Assessment/Plan 1. Acute respiratory failure. 2. afib 3. Chronic kidney disease with possible acute component. 4. Shock liver with elevated liver enzymes. 5. Coronary heart disease. 6. Dementia. 7. History of recent gastrointestinal bleed. 8. pna better today bipap qhs and prn distress rate control nebs as ordered monitor for arrhythmia titrate o2 wound care encourage po awaiting transfer to [facility] Subjective Constitutional: Reports: no symptoms HEENT: Repors: no symptoms Respiratory: Reports: no symptoms, dry cough Gastrointestinal/Abdominal: Reports: no symptoms Genitourinary: Reports: no symptoms Skin: Reports: no symptoms Endocrine: Reports: no symptoms Allergies: Coded Allergies: PENICILLINS (Verified Allergy, Unknown, 06/18/17) Subjective doing well today no fever tolerating po no bleeding on 2 4 L sats 93 no cp nv cough with minimal phlegm Objective Last 24 Hour Vital Signs Date Time Temp Pulse Resp B/P (MAP) Pulse Ox O2 Delivery O2 Flow Rate FiO2 06/20/17 16:00 4.0 06/20/17 15:29 95 06/20/17 15:07 79 18 92 Nasal Cannula 4.0 36 06/20/17 14:59 75 18 92 Nasal Cannula 4.0 36 06/20/17 12:00 96.8 93 22 101/65 91 Nasal Cannula 4.0 96.8 06/20/17 12:00 4.0 06/20/17 11:50 96 06/20/17 10:58 72 18 92 Nasal Cannula 3.0 32 06/20/17 10:48 80 18 91 Nasal Cannula 3.0 32 06/20/17 09:22 90 98/62 06/20/17 09:00 90 98/62 06/20/17 08:00 97.7 113 22 94/59 90 Nasal Cannula 2.0 97.7 06/20/17 08:00 2.0 06/20/17 08:00 123 06/20/17 06:56 64 18 94 Nasal Cannula 3.0 32 06/20/17 06:56 Nasal Cannula 3.0 32 06/20/17 06:56 91 Nasal Cannula 3.0 32 06/20/17 06:45 79 18 90 Nasal Cannula 2.0 28 06/20/17 04:00 96 06/20/17 04:00 97.2 94 25 100/69 96 Nasal Cannula 2.0 97.2 06/20/17 03:15 64 18 93 Nasal Cannula 3.0 32 06/20/17 03:02 68 18 88 Nasal Cannula 3.0 32 06/20/17 01:11 68 22 98 Facial 30 06/20/17 00:30 100 06/20/17 00:00 105 06/20/17 00:00 97.8 103 20 136/89 100 Bi-pap 100.0 97.8 06/19/17 23:45 66 18 96 Nasal Cannula 2.0 28 06/19/17 23:35 65 18 91 Nasal Cannula 2.0 28 06/19/17 22:30 119 110/70 06/19/17 20:36 85 18 99 Nasal Cannula 2.0 28 06/19/17 20:20 59 18 95 Nasal Cannula 2.0 28 06/19/17 20:20 Nasal Cannula 2.0 06/19/17 20:00 94 06/19/17 20:00 97.1 90 20 139/100 100 Nasal Cannula 2.0 97.1 Intake and Output 06/19/17 06/20/17 19:00 07:00 Intake Total 400 ml 360 ml Output Total 340 ml 350 ml Balance 60 ml 10 ml Intake Oral 300 ml 150 ml IV Total 100 ml 210 ml Output Urine Total 340 ml 350 ml HEENT: normocephalic, atraumatic Respiratory/Chest: crackles/rales, rhonchi Cardiovascular: regular rhythm, murmur systolic Abdomen: soft, non tender, no organomegaly Skin: no rash, no lesions Neurologic/Psychiatric: no motor/sensory deficits, alert, oriented x 3 Lymphatic: no neck adenopathy, no groin adenopathy Microbiology Date/Time Source Procedure Growth Status 06/18/17 15:22 Blood Blood Culture - Preliminary NO GROWTH AFTER 24 HOURS Resulted 06/18/17 15:10 Blood Blood Culture - Preliminary NO GROWTH AFTER 24 HOURS Resulted 06/18/17 19:00 Nasal Nares MRSA Culture - Final NO METHICILLIN RESISTANT STAPH AUREUS... Complete 06/18/17 15:36 Urine,Clean Catch Urine Culture - Final NO GROWTH AFTER 48 HOURS Complete 06/18/17 19:00 Rectum VRE Culture - Final NO VANCOMYCIN RESISTANT ENTEROCOCCUS ... Complete Laboratory Tests 06/19/17 21:00: Urine Collection Time 24, Urine Total Volume 750, Urine Creatinine 104, Urine Creatinine 24 Hour 780L, Patient Height Inches (Creat Clear) 67, Patient Weight Pounds (Creat Clear) 165.99, Creatinine Clearance 12L, Creatinine 4.1H, Estimat Glomerular Filtration Rate , Random Vancomycin Level 14.1 06/20/17 06:30: Creatinine 4.4H, Estimat Glomerular Filtration Rate , White Blood Count 15.3H, Red Blood Count 3.18L, Hemoglobin 10.1L, Hematocrit 29.1L, Mean Corpuscular Volume 91, Mean Corpuscular Hemoglobin 31.7H, Mean Corpuscular Hemoglobin Concent 34.7, Red Cell Distribution Width 14.6, Platelet Count 364, Mean Platelet Volume 7.4, Neutrophils (%) (Auto) , Lymphocytes (%) (Auto) , Monocytes (%) (Auto) , Eosinophils (%) (Auto) , Basophils (%) (Auto) , Differential Total Cells Counted 100, Neutrophils % (Manual) 91H, Lymphocytes % (Manual) 4L, Monocytes % (Manual) 5, Eosinophils % (Manual) 0, Basophils % ( Manual) 0, Band Neutrophils 0, Platelet Estimate Adequate, Platelet Morphology Normal, Hypochromasia 1+, Sodium Level 131L, Potassium Level 4.0, Chloride Level 96L, Carbon Dioxide Level 15L, Anion Gap 20H, Blood Urea Nitrogen 106H, Glucose Level 126H, Uric Acid 15.6H, Calcium Level 8.3L, Phosphorus Level 7.6H, Magnesium Level 2.5H, Total Bilirubin 1.0, Aspartate Amino Transf (AST/SGOT) 677H, Alanine Aminotransferase (ALT/SGPT) 554H, Alkaline Phosphatase 213H, Troponin I 0.400H, Total Protein 6.0L, Albumin 2.7L, Globulin 3.3, Albumin/ Globulin Ratio 0.8L Current Medications Medications (Trade) Dose Ordered Sig/Leandro Route PRN Reason Start Time Stop Time Status Last Admin Dose Admin Albuterol/ Ipratropium (Albuterol/ Ipratropium) 3 ml Q4HRT HHN 06/19/17 19:00 06/23/17 22:59 06/20/17 14:52 Allopurinol (Zyloprim) 200 mg DAILY ORAL 06/20/17 15:00 07/20/17 14:59 06/20/17 16:26 Amiodarone HCl (Cordarone) 200 mg DAILY ORAL 06/20/17 09:00 07/19/17 08:59 06/20/17 09:16 Aspirin (ASA) 81 mg DAILY ORAL 06/20/17 09:00 07/19/17 08:59 06/20/17 09:17 Cefepime HCl 0.5 gm/Dextrose 55 ml @ 110 mls/hr Q24H IVPB 06/19/17 18:00 06/26/17 17:59 06/19/17 21:05 Clopidogrel Bisulfate (Plavix) 75 mg DAILY ORAL 06/20/17 09:00 07/19/17 08:59 06/20/17 09:15 Dextrose (Dextrose 50%) 25 ml STAT PRN IV Hypoglycemia BS 60-69mg/dl 06/19/17 19:16 07/18/17 19:15 Dextrose (Dextrose 50%) 50 ml STAT PRN IV Hypoglycemia BS less than 60mg 06/19/17 19:16 07/18/17 19:15 Furosemide (Lasix) 40 mg Q8HR IV 06/20/17 22:00 07/20/17 21:59 Heparin Sodium (Porcine) (Heparin 5000 units/ml) 5,000 units EVERY 12 HOURS SUBQ 06/19/17 21:00 07/18/17 20:59 06/20/17 09:19 Insulin Aspart (NovoLOG) BEFORE MEALS AND HS SUBQ 06/19/17 21:00 07/18/17 20:59 06/20/17 16:27 Metoprolol Succinate (Toprol XL) 25 mg DAILY ORAL 06/20/17 09:00 07/19/17 08:59 Metronidazole 100 ml @ 100 mls/hr Q8HR IVPB 06/19/17 22:00 06/25/17 21:59 06/20/17 14:24 Pantoprazole (Protonix) 40 mg DAILY ORAL 06/20/17 09:00 07/19/17 08:59 06/20/17 09:17 Vancomycin HCl (Vanco rx to dose) 1 ea DAILY PRN MISC Per rx protocol 06/19/17 19:17 07/19/17 19:16 NIYA IRWIN DO Jun 20, 2017 16:49
[2017-06-20] MEDS ORDERED: Zolpidem 5mg tab ORAL PRN (17:15)
[2017-06-20] MEDS: Cefepime HCl 0.5 GM in D5W 55 ML IVPB SCH (17:20)
[2017-06-20] MEDS ORDERED: Tubing IV Secondary IV ONE ×2 (19:53→21:53)
[2017-06-20] MEDS ORDERED: D5W 275ml ONE (19:53)
[2017-06-20] MEDS ORDERED: NS 275ml ONE (19:53)
[2017-06-20] MEDS ORDERED: Levalbuterol Inh UD 1.25mg/0.5ml HHN SCH (21:00)
[2017-06-20] MEDS ORDERED: Metoprolol 25mg tab ORAL SCH (21:45)
[2017-06-20] MEDS ORDERED: Metoprolol 5mg/5ml Inj IVP SCH (21:45)
[2017-06-20] MEDS ORDERED: Metoprolol 5mg/5ml Inj IVPB SCH (21:45)
[2017-06-20] MEDS ORDERED: LORazepam Inj 2mg/ml 1ml IV SCH (21:45)
--- NOTE | 2017-06-21 02:15 | Progress Note ---
DATE: 06/20/2017 CARDIOLOGY PROGRESS NOTE SUBJECTIVE: The patient has less shortness of breath. He is comfortable on two liters nasal cannula. The patient's sister is at bedside. Case discussed in detail with her and the patient. OBJECTIVE: VITAL SIGNS: Blood pressure 101/65, pulse 93, respirations 22, and afebrile. LUNGS: Coarse breath sounds. Few rhonchi and rales. HEART: Irregularly irregular rhythm. Normal S1 and S2. ABDOMEN: Soft. EXTREMITIES: No edema. LABORATORY DATA: White count 15, hemoglobin 10. Sodium 131, potassium 4, bicarbonate 15, BUN 106, and creatinine 4.4. Troponin down to 0.4. Uric acid is 15.6. Albumin 2.7. IMPRESSION: 1. Acute myocardial infarction. 2. Cardiogenic shock. 3. Pulmonary edema. 4. Acute on chronic renal failure. 5. Hyperuricemia. 6. Transaminitis, likely due to passive congestion. 7. Healthcare-acquired pneumonia, remains here with serious condition and guarded prognosis, but improved. 8. Paroxysmal atrial fibrillation. 9. Status post gastrointestinal bleed due to gastric ulcer. 10. Status post coronary stenting. PLAN: Diuresis with cautious monitoring of cardiorenal parameters. Family members made aware that dialysis risk is present. Continue dual anti-platelet therapy. Hold anticoagulation in view of recent gastric ulcer and bleeding risk. Increase amiodarone to reload and maintain sinus rhythm. He will be transferred to the primary care physician at [facility] with critical care ambulance only. Discussed with family members. Continue antimicrobials. Moisés Franklin M.D. DR: Krystian JOB#: [id number] CC:
[2017-06-21] MEDS ORDERED: Amiodarone 200mg tab ORAL SCH (09:00)
--- NOTE | 2017-06-21 17:50 | Cardiology Report ---
APPROVED REPORT EKG Measurement Heart [id number] MD [id number] Normal sinus rhythm Left axis deviation Right bundle branch block Anteroseptal infarct, age undetermined Abnormal ECG
--- NOTE | 2017-06-22 09:45 | Discharge Summary ---
Discharge Summary Discharge Summary Discharge Summary DATE OF ADMISSION: 06/18/2017 DATE OF DISCHARGE: 06/20/2017 REASON FOR ADMISSION: [] 87 years old male recently sustained acute myocardial infarction and was treated at [facility] with placement of coronary stent.'s hospital course was complicated by congestive heart failure, atrial fibrillation , and upper GI bleeding with profound anemia, as well as acute renal failure. Patient was supposed to undergo a second stent but because of the complicated hospital course this Lasix middle stent was delayed and not performed. Patient after stability patient was transferred to [facility] facility for further management. Patient presented to emergency department with shortness of breath. Patient was either and was unable to provide any significant information. Upon evaluation in emergency department CT of the head revealed no acute intracranial pathology but shows chronic age-related changes. X-ray revealed bilateral interstitial and airspace edema versus infiltrate, and bilateral pleural effusion. Patient was placed on the BiPAP. Lactic acid was explained 3 WBC 17.7 hemoglobin 10.6 hematocrit 31.7 elevated liver enzymes were noted AST 670 AOT 365. Troponin was elevated 0.488 proBNP was above 35, 000 CK 327 CK-MB 16.2. Patient was admitted to [facility] for further management CONSULTANTS: dispatcher radioactive waste disposal Dr. See neurologist pulmonary ID specialist GI specialist bark press operator Dr. Arciniega in store representative/oncologist surgery psychiatrist HOSPITAL COURSE: Patient was admitted to telemetry. Patient was on the BiPAP , settings were titrated to keep pulse oximetry above 92% ; pulmonary toilet was provided as needed. Patient was started on cautious diuresis with close monitoring of cardiorenal parameters and volumes. Junior Recruiter closely follow. Dual antiplatelet therapy was resumed .Serial troponin were positive, but anticoagulation was hold due to recent GI bleeding with severe anemia. Antianginal regimen was titrated as tolerated by blood pressure. Heart rate was controlled with amiodarone, dose was uptitrated. DVT and GI prophylaxis provided. Patient eventually was able to be weaned from the BiPAP to oxygen via nasal cannula. Patient was on antibiotic for possible healthcare associated pneumonia. Follow- up chest x-ray did not reveal significant improvement. Patient was afebrile but leukocytosis persisted. Wage And Salary Specialist closely followed. According to bark press operator, patient had chronic kidney disease likely stage 4 or 5 due to nephrosclerosis. On this admission he presented with acute kidney injury likely secondary to contrast nephropathy from recent cardiac catheterization, possible contribution from cardiorenal syndrome with worsening congestive heart failure and cardiomyopathy, possible atheroembolic syndrome as well. Wage And Salary Specialist recommended to continue gradual diuresis in view of respiratory failure and CHF. Renal parameters were closely monitored. Electrolytes were corrected as needed. Creatinine and BUN with some elevation and then peak. He may or may not be a candidate for dialysis as per bark press operator, however, this should be closely considered with weighing all pros and cons in view of multiply comorbidities and Alzheimer dementia. Transfer was arranged to [facility] for further management . Patient was transferred to higher level of care via [facility]. FINAL DIAGNOSES: Acute respiratory failure,improved Acute myocardial infarction Cardiogenic shock Acute on chronic systolic and diastolic congestive heart failure Possible healthcare associated pneumonia Chronic kidney disease, likely stage 4 or 5, due to nephrosclerosis. Acute kidney injury likely secondary to contrast nephropathy from recent cardiac catheterization, possible contribution of cardiorenal syndrome due to worsening CHF and cardiomyopathy, possible atheroembolic syndrome Ischemic cardiomyopathy Lactic acidosis Coronary artery disease, status post recent MO with the coronary stenting Paroxysmal atrial fibrillation Shock liver with elevated liver enzymes Moderate protein calorie malnutrition Alzheimer dementia history of GI bleeding DISCHARGE MEDICATIONS: List of medication was sent to the accepting facility DISCHARGE INSTRUCTIONS: Patient was transferred to [facility] via [facility] for further management I have been assigned to dictate discharge summary for this account. I was not involved in the patient's management. Dary Phan NP ([place]) Jun 22, 2017 09:45
== END 2017-06-20 22:40 | disposition short-term general hospital (02) | DRG 280 ==
LOC: EDBD 14:23 → EMR 14:55 → EDBEDREQ 15:20 → ICU 15:35 → EDBEDREQSVC 16:37 → EDBEDREQ 16:37 → 2W 06-19 16:40
PROC: 5A09457 Assistance with Respiratory Ventilation, 24-96 Consecutive Hours, Continuous Positive Airway Pressure (ICD-10-PCS; principal; 2017-06-18)
DX: I21.9 Acute myocardial infarction, unspecified (principal); J96.00 Acute respiratory failure, unspecified whether with hypoxia or hypercapnia; I50.43 Acute on chronic combined systolic (congestive) and diastolic (congestive) heart failure; J18.9 Pneumonia, unspecified organism; K72.00 Acute and subacute hepatic failure without coma; R57.0 Cardiogenic shock; N17.9 Acute kidney failure, unspecified; E44.0 Moderate protein-calorie malnutrition; I13.0 Hypertensive heart and chronic kidney disease with heart failure and stage 1 through stage 4 chronic kidney disease, or unspecified chronic kidney disease; N18.5 Chronic kidney disease, stage 5; T50.8X5A Adverse effect of diagnostic agents, initial encounter; I25.5 Ischemic cardiomyopathy; I25.10 Atherosclerotic heart disease of native coronary artery without angina pectoris; I48.0 Paroxysmal atrial fibrillation; G30.9 Alzheimer's disease, unspecified; F02.80 Dementia in other diseases classified elsewhere, unspecified severity, without behavioral disturbance, psychotic disturbance, mood disturbance, and anxiety; Z88.0 Allergy status to penicillin; I45.10 Unspecified right bundle-branch block; I25.2 Old myocardial infarction
CPT/HCPCS: 36415; 36600; 70450; 71045; 76770; 80053; 80202; 81003; 82550; 82553; 82575; 82803; 82962; 83036; 83605; 83735; 83880; 84100; 84153; 84443; 84484; 84550; 85007; 85025; 85610; 85730; 87040; 87081; 87086; 93005; 93971; 94640; 94660; 94664; 94760; 99291; J1815; J7620